=== PATIENT | female | born 2000 | race Caucasian/White ===

== ENCOUNTER 2020-07-19 20:41 | Emergency (ER) | payer SELFPAY ==
[~2020-07-19] VITALS: Ht 157.5 cm; Wt 54.5 kg
[2020-07-19 20:55] VITALS: Ht 157.5 cm; Wt 54.5 kg
[2020-07-19 21:24] LABS: BASOPHILS 0.1 % (0-2); EOSINOPHILS 0.5 % (0-7); HEMATOCRIT 26.2 % (36.0-48.0); IMMATURE GRANULOCYTES 0.3 % (0-5); LYMPHOCYTE ABS# 2.03 10x3/uL (1.18-3.74); MCHC 30.5 g/dL (31.0-37.0); MCV 78.4 fL (80.0-100.0); MEAN PLATELET VOLUME 9.1 fL (7.4-10.4); MONOCYTES 8.6 % (2-11); NEUTROPHIL ABS# 7.18 10x3/uL (1.56-6.13); NEUTROPHILS 70.5 % (40-80); PLATELET COUNT 246 10x3/uL (130-400); RBC 3.34 10x6/uL (4.00-5.40); RDW 16.1 % (11.5-14.5); WBC 10.2 10x3/uL (4.8-10.8)
[2020-07-19 21:28] LABS: CALC OSMOLALITY 267 mosm/kg (275-300); CALCIUM 8.5 mg/dL (8.5-10.1); CHLORIDE - SERUM 101 mmol/L (98-107); CREATININE - SERUM 0.5 mg/dL (0.6-1.3); GLUCOSE 116 mg/dL (74-106); POTASSIUM - SERUM 3.3 mmol/L (3.5-5.1); SODIUM 134 mmol/L (136-145); UREA NITROGEN 9 mg/dL (7-18); eGFR NON AFRICAN AMERICAN > 90 mL/min (90-120)
[2020-07-19 21:43] LABS: ALBUMIN 3.2 g/dL (3.4-5.0); ALKALINE PHOSPHATASE 90 U/L (30-120); ALT (SGPT) 21 U/L (10-68); BILIRUBIN - TOTAL 0.24 mg/dL (0.2-1.3); CREATINE KINASE 116 UL (21-215); PROTEIN - SERUM 7.3 g/dL (6.4-8.2); THYROID STIMULATING HORMONE 0.52 uIU/mL (0.36-3.74)
[2020-07-19 21:59] LABS: BILIRUBIN NEGATIVE (NEGATIVE); HCG URINE POSITIVE (NEGATIVE); KETONE NEGATIVE (NEGATIVE); NITRITE NEGATIVE (NEGATIVE); UROBILINOGEN NORMAL mg/dL (< 2)
[2020-07-19 22:38] LABS: UDS - AMPHET NEGATIVE QUAL (NEGATIVE); UDS - BARB NEGATIVE QUAL (NEGATIVE); UDS - BENZO NEGATIVE QUAL (NEGATIVE); UDS - COCAINE NEGATIVE QUAL (NEGATIVE); UDS - OPIATE NEGATIVE QUAL (NEGATIVE); UDS - PCP NEGATIVE QUAL (NEGATIVE); UDS - THC POSITIVE QUAL (NEGATIVE)
[2020-07-19] MEDS ORDERED: PRENAVITE1 TAB PO (22:40)
[2020-07-19 23:29] VITALS: BP 107/64
== END 2020-07-19 23:15 | disposition home or self-care (01) ==
LOC: D.ER 20:41
PROVIDERS: Family Medicine
DX: O99.019 Anemia complicating pregnancy, unspecified trimester (principal); Z3A.00 Weeks of gestation of pregnancy not specified; R41.82 Altered mental status, unspecified

== ENCOUNTER → 2020-10-24 13:00 | Outpatient (CLI) | payer MEDICAID ==
[2020-07-19 20:55] VITALS: BMI 22.0
[~2020-10-24 13:00] MED LIST: PRENAVITE1 TAB PO
[2020-10-24 23:57] VITALS: BMI 24.4
== END | disposition home or self-care (01) ==
LOC: D.LDO 13:00
PROVIDERS: ATTEND Student in an Organized Health Care Education/Training Program
DX: O35.9XX0 Maternal care for (suspected) fetal abnormality and damage, unspecified, not applicable or unspecified (principal)

== ENCOUNTER 2020-10-24 19:15 | Inpatient (IN) | payer MEDICAID ==
[~2020-10-24] VITALS: Ht 157.5 cm; Wt 60.3 kg
[2020-10-24 21:51] LABS: HEMOGLOBIN 10.3 g/dL (12-16); MCH 23.8 pg (26.0-34.0); MCHC 31.4 g/dL (31.0-37.0); MCV 75.7 fL (80.0-100.0); MEAN PLATELET VOLUME 8.5 fL (7.4-10.4); RBC 4.36 10x6/uL (4.00-5.40); WBC 10.1 10x3/uL (4.8-10.8)
[2020-10-24 21:58] LABS: BILIRUBIN NEGATIVE (NEGATIVE); KETONE NEGATIVE (NEGATIVE); NITRITE NEGATIVE (NEGATIVE); UROBILINOGEN NORMAL mg/dL (< 2)
[2020-10-24 22:05] LABS: UDS - AMPHET NEGATIVE QUAL (NEGATIVE); UDS - BARB NEGATIVE QUAL (NEGATIVE); UDS - BENZO NEGATIVE QUAL (NEGATIVE); UDS - COCAINE NEGATIVE QUAL (NEGATIVE); UDS - OPIATE NEGATIVE QUAL (NEGATIVE); UDS - PCP NEGATIVE QUAL (NEGATIVE); UDS - THC NEGATIVE QUAL (NEGATIVE)
[2020-10-24 23:57] VITALS: BP 110/62; Ht 157.5 cm; Wt 60.3 kg
--- NOTE | 2020-10-25 10:25 | NUR ---
PT TRANSFERRED TO ROOM 1257 FOR CARE. PT ORIENTED TO NEW ROOM AND CALL LIGHT. BATHROOM SUPPLIES, TOWELS, AND PERICARE SUPPLIES GIVEN. FRESH ICE WATER GIVEN. PT DENIES NEEDS, STATES SHE WANTS TO REST. SRUx2, CL IN REACH. PT FAMILY AT BEDSIDE.
--- NOTE | 2020-10-25 13:30 | NUR ---
THIS RN TO PT CHECK. PT SITTING UP IN BED, HOLDING . DENIES PAIN OR ANY NEEDS AT THIS TIME. STATES SHE SHOWERED AND PUT ON CLEAN GOWN. VISITING WITH FAMILY AT THIS TIME. Whitney, CL IN REACH.
--- NOTE | 2020-10-25 15:45 | NUR ---
THIS RN TO ROOM FOR PT CHECK. PT LYING IN BED ON LEFT SIDE, RESP EVEN AND UNLABORED. SRUx2, CL IN REACH. PT MOTHER ON BEDSIDE CHAIR.
[2020-10-25 18:00] VITALS: BP 98/54
--- NOTE | 2020-10-25 18:00 | NUR ---
THIS RN TO ROOM FOR PT CHECK. PT SITTING UP IN BED, WATCHING TV. VSS, SEE FLOWSHEET. PT DENIES PAIN OR NEEDS. FF, ML, U/2. SMALL TO MOD RUBRA LOCHIA NOTED WITH DIME SIZED CLOT NOTED. PT STATES SHE LAST CHANGED PAD AT APPROX 1400. S/S TO REPORT REGARDING LOCHIA AND CLOTS REINFORCED TO PT AND FAMILY. SRUx2. CL IN REACH.
[2020-10-25 19:25] VITALS: BP 104/56
--- NOTE | 2020-10-25 19:25 | NUR ---
PT SITTING UP IN BED A,A,OX4. INFANT SLEEPING IN CRIB AT BEDSIDE. VSS. PIV 18 G IN LEFT WRIST, SALINE LOCKED, C/D/I. FF,U2,MIDLINE, SMALL AMOUNT RUBRA LOCHIA NOTED. ICE PACK/PAD WITH TUCKS PLACED ON PERINEUM FOR SWELLING. WATER PROVIDED. SEE FULL ASSESSMENT PER FLOWSHEET. CALL LIGHT WITHIN REACH.
--- NOTE | 2020-10-25 19:33 | NUR ---
MOTRIN 600 ADMINSITERED PER EMAR. PT HAVING PAIN, SWELLING ON PERINEUM. PT DENIES OTHER NEEDS AT THIS TIME.
--- NOTE | 2020-10-25 22:45 | NUR ---
PT RESTING IN BED WITH IN CRIB AT BEDSIDE. MEDICATION EDUCATION DONE. PT REQUESTS TO GO TO NURSERY SO SHE CAN REST. BROUGHT TO NURSERY.
--- NOTE | 2020-10-26 01:19 | NUR ---
MOTRIN ADMINISTERED PER EMAR. PT DENIES OTHER NEEDS AT THIS TIME.
--- NOTE | 2020-10-26 04:04 | NUR ---
PT RESTING WITH EYES CLOSED, BREATHING NONLABORED.
--- NOTE | 2020-10-26 04:17 | NUR ---
AWAKE,INFANT AT BREAST. PT DENIES NEEDS AT THIS TIME.
--- NOTE | 2020-10-26 06:15 | NUR ---
ICE PACK/PAD PROVIDED FOR PERINEUM. SMALL AMOUNT RUBRA LOCHIA NOTED ON PERIPADS. PT DENIES OTHER NEEDS AT THIS TIME. CALL LIGHT WITHIN REACH.
[2020-10-26 06:49] LABS: BASOPHILS 0.3 % (0-2); EOSINOPHILS 1.3 % (0-7); HEMATOCRIT 26.8 % (36.0-48.0); HEMOGLOBIN 8.5 g/dL (12-16); LYMPHOCYTES 20.4 % (15-50); MCH 23.8 pg (26.0-34.0); MCHC 31.7 g/dL (31.0-37.0); MCV 75.1 fL (80.0-100.0); MEAN PLATELET VOLUME 8.4 fL (7.4-10.4); MONOCYTES 8.2 % (2-11); NEUTROPHILS 69.8 % (40-80); RBC 3.56 10x6/uL (4.00-5.40); RDW 21.8 % (11.5-14.5); WBC 12.5 10x3/uL (4.8-10.8)
[2020-10-26 06:59] LABS: PLATELET COUNT 196 10x3/uL (130-400)
--- NOTE | 2020-10-26 07:18 | NUR ---
AM ASSESSMENT COMPLETED CHARTED TO FLOWSHEET. PT DENIES PAIN OR DISCOMFORT AT THIS TIME. FUNDUS FIRM AT U/1 WITH LIGHT BLEEDING NOTED TO VANNA PAD. ADDITIONAL VANNA PAD AND MESH BRIEFS PLACED IN BATHROOM REQUESTED. DENIES ANY OTHER NEEDS AT THIS TIME. SIDE RAILS UP X 2 WITH CALL LIGHT IN REACH.
[2020-10-26 08:13] LABS: RAPID PLASMA REAGIN Non Reactive (Non Reactive)
--- NOTE | 2020-10-26 09:48 | NUR ---
TOWELS PLACED IN BATHROOM, SALINE LOCK D/C WITH CATH INTACT. PT UP TO SHOWER, SHE DENIES DIZZINESS OR NAUSEA. PT MOTHER REMAINS IN ROOM AND UNDERSTANDS TO CALL FOR NURSE IF ASSISTANCE IS NEEDED.
--- NOTE | 2020-10-26 11:15 | NUR ---
PT PROVIDED WITH INFO AND POLICY IN REGARDS TO ROOMING IN SO THAT SHE IS ABLE TO REVIEW PRIOR TO DISCHARGE.
--- NOTE | 2020-10-26 12:00 | NUR ---
PT GIVEN ROOMING IN POLICY AND SIGNS CONSENT TO ROOM IN. VERBAL AND WRITTEN DISCHARGE INSTRUCTIONS GIVEN IN [place]. EXPLAINED TO PT TO USE OTC IBUPROFEN FOR PAIN CONTROL, SHE AND HER SISTER STATE UNDERSTANDING. NO QUESTIONS OR CONCERNS AT THIS TIME.
== END 2020-10-26 12:00 | disposition home or self-care (01) | DRG 807 ==
LOC: D.LD 19:15
PROVIDERS: ADMIT Student in an Organized Health Care Education/Training Program; ATTEND Student in an Organized Health Care Education/Training Program
PROC: 10E0XZZ Delivery of Products of Conception, External Approach (ICD-10-PCS; principal; 2020-10-25)
PROC: 0KQM0ZZ Repair Perineum Muscle, Open Approach (ICD-10-PCS; 2020-10-25)
PROC: 3E033VJ Introduction of Other Hormone into Peripheral Vein, Percutaneous Approach (ICD-10-PCS; 2020-10-25)
DX: O70.1 Second degree perineal laceration during delivery (principal); Z3A.40 40 weeks gestation of pregnancy; Z37.0 Single live birth; O99.02 Anemia complicating childbirth; D64.9 Anemia, unspecified